=== PATIENT | male | born 2000 | race Two or more races ===

== ENCOUNTER 2024-10-17 19:33 | Emergency (ER) | payer OTHER ==
[~2024-10-17] VITALS: Ht 162.6 cm; Wt 63.6 kg
--- NOTE | 2024-10-17 20:27 | ED.PDOC ---
Back pain HPI HPI Comments Pt presents to the ER due to lft wrist pain. Per pt he was riding his skateboard and fell bracing his fall with his lft hand. Pt presents with + deformity to lft wrist, CSM intact. Pt reports numbness and pain to extremity. Pt denies hitting head. Chief Complaint: Upper Extremity Time Seen by MD: 19:41 Reviewed Notes: Nurses Notes, Medications, Allergies Allergies: Coded Allergies: NO KNOWN ALLERGIES (Unverified , 10/17/24) Information Source: Patient Past Medical History PAST MEDICAL HISTORY: Denies Surgical History: Denies all surgeries Family History Family History: Reviewed,noncontributory to illness Social History Smoker: Non-Smoker Alcohol: Denies ETOH Use Drugs: Denies Drug Use Constitutional: denies: chills, diaphoresis, fatigue, fever, malaise, sweats, weakness, others EENTM: denies: blurred vision, double vision, ear bleeding, ear discharge, ear drainage, ear pain, ear ringing, eye pain, eye redness, hearing loss, mouth pain, mouth swelling, nasal discharge, nose bleeding, nose congestion, nose pain, photophobia, tearing, throat pain, throat swelling, voice changes, others Respiratory: denies: cough, hemoptysis, orthopnea, SOB at rest, shortness of breath, SOB with excertion, stridor, wheezing, others Cardiovascular: denies: chest pain, dizzy spells, diaphoresis, Dyspnea on exertion, edema, irregular heart beat, left arm pain, lightheadedness, palpitations, PND, syncope, others Gastrointestinal: denies: abdomen distended, abdominal pain, blood streaked bowels, constipated, diarrhea, dysphagia, difficulty swallowing, hematemesis, melena, nausea, poor appetite, poor fluid intake, rectal bleeding, rectal pain, vomiting, others Genitourinary: denies: burning, dysuria, flank pain, frequency, hematuria, incontinence, penile discharge, penile sore, pain, testicle pain, testicle swelling, urgency, others Neurological: denies: dizziness, fainting, headache, left sided numbness, left sided weakness, numbness, paresthesia, pre-existing deficit, right sided numbness, right sided weakness, seizure, speech problems, tingling, tremors, weakness, others Musculoskeletal: reports: joint pain, joint swelling; denies: back pain, gout, muscle pain, muscle stiffness, neck pain, others Integumetry: denies: bruises, change in color, change in hair/nails, dryness, laceration, lesions, lumps, rash, wounds, others Allergic/Immunocompromised: denies: Difficulty Healing, Frequent Infections, Hives, Itching, others Hematologic/Lymphatic: denies: anemia, blood clots, easy bleeding, easy bruising, swollen glands, others Endocrine: denies: excessive hunger, excessive sweating, excessive thirst, excessive urination, flushing, intolerance to cold, intolerance to heat, unexplained weight gain, unexplained weight loss, others Psychiatric: denies: anxiety, bipolar disorder, depression, hopeless, panic disorder, schizophrenia, sleepless, suicidal, others Physical Exam General Appearance: No Apparent Distress, Normal HEENT: Pharynx Normal Neck: Full Range of Motion, Non-Tender Respiratory: Lungs Clear, No Respiratory Distress, Normal Breath Sounds Cardiovascular: No Murmur, Normal Peripheral Pulses, Regular Rate/Rhythm Breast Exam: Deferred Gastrointestinal: Non Tender, Soft Genitalia: Deferred Pelvic: Deferred Rectal: Deferred Extremities: Normal capillary refill, Normal inspection, Normal range of motion, Non-tender Musculoskeletal : Location: Left Extremity Location: Wrist (NOTED BONY PROMINENCE OVER POSTERIOR AT THE RADIAL WITH MODERATE TENDERNESS) Apperance: Normal Neurologic: Alert, guest attendant II-XII nml as Tested, No Motor Deficits, Normal Affect, Normal Mood, No Sensory Deficits Cerebellar Function: Normal Reflexes: Normal Skin: Dry, Normal Color, Warm Lymphatic: No Adenopathy Was a procedure done? Was a procedure done?: Yes ( RADIAL PU) Sedation Sedation?: No Informed consent obtained: Yes Reduction Indication: Dislocation Sedation: Consents obtained Intra-articular anesthetic moris: No Post-reduction x-ray show: Reduction, Acceptable Alignment Informed consent obtained: Yes Risks/benefits/alt described: Yes Notes REDUCED PATIENT TOLERATED WELL POSITIVE CSM BEFORE AND AFTER. Back Pain Differential Dx Differential Diagnosis: Fracture, Musculoskeletal Pain X-Ray, Labs, Meds, VS Vital Signs Date Time Temp Pulse Resp B/P (MAP) Pulse Ox O2 Delivery O2 Flow Rate FiO2 10/17/24 20:15 97.6 98 16 124/71 (88) 98 97.6 Time of 1ST Reevaluation: 20:30 Reevaluation 1ST: Unchanged Time of 2ND Reevaluation: 21:37 Reevaluation 2ND: Improved Patient Education/Counseling: Diagnosis, Treatment, Prognosis, Need For Follow Up Family Education/Counseling: No Family Present Departure 1 Departure Time of Disposition: 21:37 Impression: Primary Impression: Distal radius fracture, left Qualified Codes: S52.502A - Unspecified fracture of the lower end of left radius, initial encounter for closed fracture Additional Impression: Closed displaced fracture of ulnar styloid with routine healing Qualified Codes: S52.612D - Displaced fracture of left ulna styloid process, subsequent encounter for closed fracture with routine healing Disposition: 01 HOME / SELF CARE / HOMELESS Condition: Stable e-Prescriptions Ibuprofen Micronized (Ibuprofen) 800 Mg Tab 800 MG PO TID PRN for 6 Days, #18 TAB Prov: RAFAEL OLIVAS 10/17/24 Discharged With: Self Critical Care Note Critical Care Time?: No Stability Stability form required: RAFAEL Pillai October 17, 2024 20:27
--- NOTE | 2024-10-17 21:13 | DVH ---
CLINICAL INDICATION: fall TECHNIQUE: 3 radiographic views of the right wrist were obtained. Comparison: None FINDINGS/IMPRESSION: Fracture through the distal radius and displaced fracture through the styloid process of the ulna.
[2024-10-17] MEDS ORDERED: IBUP-1455 PO (23:09)
[2024-10-17 23:14] VITALS: BP 123/76; PULSE 81; RESP 18; TEMP 97.9
--- NOTE | 2024-10-18 00:21 | DVH ---
CLINICAL INDICATION: POSTREDUCTION TECHNIQUE: XY L WRIST 3+ VIEW XRAY Comparison: XY L WRIST 3+ VIEW XRAY on DOS: 10/17/24 FINDINGS/IMPRESSION: : Cast material partially obscures detail of a moderately displaced significantly comminuted distal rad ial fracture with intra-articular extension. Mild persistent volar angulation noted. Mildly displaced ulnar styloid process fracture.
[2024-10-18 00:56] VITALS: O2SAT 98
== END 2024-10-18 00:55 | disposition home or self-care (01) ==
LOC: ER 19:33
DX: S52.502A Unspecified fracture of the lower end of left radius, initial encounter for closed fracture (principal); S52.612A Displaced fracture of left ulna styloid process, initial encounter for closed fracture; V00.131A Fall from skateboard, initial encounter; Y93.51 Activity, roller skating (inline) and skateboarding; Y92.89 Other specified places as the place of occurrence of the external cause; Y99.8 Other external cause status
CPT/HCPCS: 25605; 73110

== ENCOUNTER 2024-10-25 15:39 | Emergency (ER) | payer OTHER ==
[~2024-10-25] VITALS: Ht 162.6 cm; Wt 55.6 kg
[2024-10-25 15:47] VITALS: BP 128/87; PULSE 87; RESP 16; TEMP 99.7; O2SAT 96
--- NOTE | 2024-10-25 15:51 | ED.PDOC ---
Musculoskeletal HPI Comments 24 year old male presents to the ED with a chief complaint of LT wrist splint foul odor onset 1 week. Patient was seen at [facility] on 10/17/2024, was told he had a LT wrist fracture, splint and sling was applied. He has an appointment with PCP on 11/03/24 for Ortho referral. For the past week, patient noticed a foul odor, "bread-like" is concerned for infection of LT arm, states there was a scratch on the hand prior to splint. Denies any PMHx as well as fevers, chills, nausea, vomiting, numbness/tingling. No other symptoms or modifying factors present at this time. Vital signs were stable at arrival. Time Seen by MD: 15:45 Primary Care Provider: n/a Reviewed Notes: Nurses Notes, Medications, Allergies Allergies: Coded Allergies: NO KNOWN ALLERGIES (Unverified , 10/17/24) Home Meds Discontinued Scripts Ibuprofen Micronized (Ibuprofen) 800 Mg Tab, 800 MG PO TID PRN for 6 Days, #18 TAB Prov:RAFAEL [facility] 10/17/24 Information Source: Patient Mode of Arrival: Ambulatory Location: Left Extremity Location: Wrist Timing: Weeks Prehospital treatment: None Severity: Moderate Able to Move Extremity: Yes Bear Weight: Limited Pain: Moderate Hand Dominance: Right Mechanism: FOOSH Circumstances: Fall Onset of Symptoms: After Trauma DVT Risk Factors: NONE Last Tetanus: > 5 Years Past Medical History PAST MEDICAL HISTORY: Denies Surgical History: Denies all surgeries Family History Family History: Reviewed,noncontributory to illness Social History Smoker: Non-Smoker Alcohol: Denies ETOH Use Drugs: Denies Drug Use Lives In: Home Constitutional: denies: chills, diaphoresis, fatigue, fever, malaise, sweats, weakness, others EENTM: denies: blurred vision, double vision, ear bleeding, ear discharge, ear drainage, ear pain, ear ringing, eye pain, eye redness, hearing loss, mouth pain, mouth swelling, nasal discharge, nose bleeding, nose congestion, nose pain, photophobia, tearing, throat pain, throat swelling, voice changes, others Respiratory: denies: cough, hemoptysis, orthopnea, SOB at rest, shortness of breath, SOB with excertion, stridor, wheezing, others Cardiovascular: denies: chest pain, dizzy spells, diaphoresis, Dyspnea on exertion, edema, irregular heart beat, left arm pain, lightheadedness, palpitations, PND, syncope, others Gastrointestinal: denies: abdomen distended, abdominal pain, blood streaked bowels, constipated, diarrhea, dysphagia, difficulty swallowing, hematemesis, melena, nausea, poor appetite, poor fluid intake, rectal bleeding, rectal pain, vomiting, others Genitourinary: denies: burning, dysuria, flank pain, frequency, hematuria, incontinence, penile discharge, penile sore, pain, testicle pain, testicle swelling, urgency, others Neurological: denies: dizziness, fainting, headache, left sided numbness, left sided weakness, numbness, paresthesia, pre-existing deficit, right sided numbness, right sided weakness, seizure, speech problems, tingling, tremors, weakness, others Musculoskeletal: reports: others (LT arm splint foul odor); denies: back pain, gout, joint pain, joint swelling, muscle pain, muscle stiffness, neck pain Integumetry: denies: bruises, change in color, change in hair/nails, dryness, laceration, lesions, lumps, rash, wounds, others Allergic/Immunocompromised: denies: Difficulty Healing, Frequent Infections, Hives, Itching, others Hematologic/Lymphatic: denies: anemia, blood clots, easy bleeding, easy bruisin g, swollen glands, others Endocrine: denies: excessive hunger, excessive sweating, excessive thirst, excessive urination, flushing, intolerance to cold, intolerance to heat, unexplained weight gain, unexplained weight loss, others Psychiatric: denies: anxiety, bipolar disorder, depression, hopeless, panic disorder, schizophrenia, sleepless, suicidal, others All Other Systems: Reviewed and Negative Physical Exam General Appearance: Mild Distress (Patient had moderate distress due to concerns about tissue integrity.), Normal HEENT: Normal ENT Inspection, Pharynx Normal, TMs Normal Neck: Full Range of Motion, Non-Tender, Normal, Normal Inspection Respiratory: Chest Non-Tender, Lungs Clear, No Accessory Muscle Use, No Respir atory Distress, Normal Breath Sounds Cardiovascular: No Edema, No JVD, No Murmur, No Gallop, Normal Peripheral Pulses, Regular Rate/Rhythm Breast Exam: Deferred Gastrointestinal: No Organomegaly, Non Tender, No Pulsatile Mass, Normal Bowel Sounds, Soft Genitalia: Deferred Pelvic: Deferred Rectal: Deferred Extremities: Other (Splint was removed and tissue was relatively unremarkable. Patient had some healing abrasions, but no sign of infection or Ivy concerns.) Musculoskeletal : Apperance: Normal Neurologic: Alert, No Motor Deficits, Normal Affect, Normal Mood, No Sensory Deficits Cerebellar Function: Normal Reflexes: Normal Skin: Dry, Normal Color, Warm Lymphatic: No Adenopathy Was a procedure done? Was a procedure done?: No Differential Diagnosis EXT Differential Diagnosis: Other (Wound evaluation, candidal skin infection, cellulitis) X-Ray, Labs, Meds, VS Vital Signs Date Time Temp Pulse Resp B/P (MAP) Pulse Ox O2 Delivery O2 Flow Rate FiO2 10/25/24 15:47 99.7 87 16 128/87 (101) 96 99.7 X-Ray, Labs, Meds, VS Comment Spent time discussing the patient's concerns with him. Advised that the patient does not have any tissue concerns with the moment. I will provide the patient with our orthopedic department phone number to be contacted on Saturday for evaluation and probable cast placement. Time of 1ST Reevaluation: 15:59 Reevaluation 1ST: Unchanged Consultation: PCP, Other (Orthopedist) Patient Education/Counseling: Diagnosis, Treatment, Prognosis Family Education/Counseling: Diagnosis, Treatment, No Family Present Departure 1 Departure Time of Disposition: 16:00 Impression: Primary Impression: Encounter for assessment of wound Disposition: HOME / SELF CARE / HOMELESS Condition: Stable Additional Instructions: Advised patient utilize pain medication as needed. Patient should contact this facility at [phone] on Saturday, tomorrow, and asked for the orthopedic department run by Dr. Monae. They will advise him on the need for urgent or passive follow up. Discharged With: Self, Friend Critical Care Note Critical Care Time?: No Stability Stability form required: No Heart Score Heart Score: Heart Score Response (Comments) Value History N/A 0 EKG N/A 0 Age N/A 0 Risk Factors N/A 0 Troponin N/A 0 Total 0 I personally scribed for ESTELA DIAZ PAC ([email or web address]) on 10/25/24 at 15:51. Electronically submitted by Feli Das ([email or web address]). ESTELA DIAZ PAC Oct 25, 2024 15:51
[2024-10-25] MEDS: TETANUS-DIPTH-ACEL PERTUSSIS 0.5ML SYR Tdap IM ONE (16:12)
[2024-10-25] MEDS: NEOMYCIN-BACITRACIN-POLYM UNITDOSE PKG TOP OINT TOP ONE (16:13)
== END 2024-10-25 16:25 | disposition home or self-care (01) ==
LOC: ER 15:42
DX: S40.812D Abrasion of left upper arm, subsequent encounter (principal); Z79.899 Other long term (current) drug therapy; X58.XXXD Exposure to other specified factors, subsequent encounter
CPT/HCPCS: 29125; 29130; 90471; 90715

== ENCOUNTER 2024-11-30 13:22 | Outpatient (CLI) | payer OTHER ==
[2024-11-30 13:46] LABS: Hematocrit 47.6 % (41.0-53.0); Hemoglobin 16.6 g/dL (13.5-17.5); Mean Corpuscular Hemoglobin 29.9 pg (28.0-32.0); Mean Corpuscular Volume 85.8 fL (80.0-100.0); Nucleated Red Blood Cells % 0.1 %
[2024-11-30 13:57] LABS: Urine Protein, UAD Negative (Negative)
[2024-11-30 14:08] LABS: Alkaline Phosphatase 96 U/L (46-116); Anion Gap 8 (5-15); BUN/Creatinine Ratio 9.5 (10.0-20.0); Blood Urea Nitrogen 9 mg/dL (9-23); Carbon Dioxide 29 mmol/L (20-31); Chloride 103 mmol/L (98-107); Cholesterol 174 mg/dL (< 200); Glucose 91 mg/dL (74-106); HDL Cholesterol 49 mg/dL (40-59); Potassium 4.3 mmol/L (3.5-5.1); Sodium 140 mmol/L (136-145); Total Protein 8.2 g/dL (5.7-8.2); Triglycerides 119 mg/dL (< 150)
[2024-11-30 14:09] LABS: Bilirubin, Total 0.4 mg/dL (0.2-1.0)
[2024-11-30 14:15] LABS: Alanine Aminotransferase 91 U/L (7-40); Albumin 5.1 g/dL (3.2-4.8); Calcium 10.8 mg/dL (8.7-10.4)
== END 2024-11-30 17:00 | disposition home or self-care (01) ==
LOC: LAB 13:22
PROVIDERS: ATTEND Nurse Practitioner Family
DX: E78.5 Hyperlipidemia, unspecified (principal); E55.9 Vitamin D deficiency, unspecified; Z00.01 Encounter for general adult medical examination with abnormal findings
CPT/HCPCS: 36415; 80053; 80061; 81001; 82306; 83036; 84443; 85025

== ENCOUNTER 2025-02-02 11:13 | Outpatient (CLI) | payer OTHER ==
[2025-02-02 12:14] LABS: Alanine Aminotransferase 17 U/L (7-40); Albumin 4.5 g/dL (3.2-4.8); Alkaline Phosphatase 86 U/L (46-116); Anion Gap 9 (5-15); BUN/Creatinine Ratio 11.4 (10.0-20.0); Bilirubin, Total 0.5 mg/dL (0.2-1.0); Blood Urea Nitrogen 10 mg/dL (9-23); Calcium 9.0 mg/dL (8.7-10.4); Carbon Dioxide 27 mmol/L (20-31); Chloride 102 mmol/L (98-107); Glucose 89 mg/dL (74-106); Potassium 3.8 mmol/L (3.5-5.1); Sodium 138 mmol/L (136-145); Total Protein 7.6 g/dL (5.7-8.2)
== END 2025-02-02 17:00 | disposition home or self-care (01) ==
LOC: LAB 11:13
PROVIDERS: ATTEND Nurse Practitioner Family
DX: R79.89 Other specified abnormal findings of blood chemistry (principal)
CPT/HCPCS: 36415; 80053